=== PATIENT | female | born 1950 | race Caucasian/White ===

== ENCOUNTER 2019-04-07 12:54 | Inpatient (IN) | payer BC ==
[2019-04-07 13:26] VITALS: BMI 27.1
--- NOTE | 2019-04-07 15:22 | HP ---
CIWA Score Nausea/Vomitin-No Nausea/No Vomiting Muscle Tremors: None Anxiety: 0-No Anxiety, at Ease Agitation: 0-Normal Activity Paroxysmal Sweats: No Perspiration Orientation: 0-Oriented Tacttile Disturbances: 0-None Auditory Disturbances: 0-None Visual Disturbances: 0-None Headache: 0-None Present CIWA-Ar Total Score: 0 - Admission Criteria OASAS Guidelines: Admission for Medically Managed Detox: Requires at least one of the followin. CIWA greater than 12 2. Seizures within the past 24 hours 3. Delirium tremens within the past 24 hours 4. Hallucinations within the past 24 hours 5. Acute intervention needed for co occurring medical disorder 6. Acute intervention needed for co occurring psychiatric disorder 7. Severe withdrawal that cannot be handled at a lower level of care (continued vomiting, continued diarrhea, abnormal vital signs) requiring intravenous medication and/or fluids 8. Admission ROS [facility] Chief Complaint: rehab for alcohol Allergies/Adverse Reactions: Allergies Allergy/AdvReac Type Severity Reaction Status Date / Time No Known Allergies Allergy Verified 04/07/19 13:13 History of Present Illness: 68 year old female with a history of osteoporosis, depression (on effexor) and seizure (3 times, 2017, 10/2018, 1 month ago) and alcohol dependence here for rehab for alcohol use. Has a plan to go back to [facility] for outpatient therapy once she finishes. Alcohol Use: started summer 2017 in response to depression; drinks on and off, sometimes every day, sometimes every other day, quarter to a half of a bottle of rum whenever she did; last drink was Wednesday, no current withdrawal symptoms Cigarettes: never No other drug use. Allergies: none Surgery: 2000 had surgery for GERD Social: lives alone in apartment Family: Has relatives out of state, support system through work Work: police department secretary @ [employer] - Ebola screening Have you traveled outside of the country in the last 21 days: No Have you had contact with anyone from an Ebola affected area: No Do you have a fever: No - Review of Systems Constitutional: No Symptoms Reported EENT: reports: No Symptoms Reported Respiratory: reports: No Symptoms reported Cardiac: reports: No Symptoms Reported GI: reports: No Symptoms Reported : reports: No Symptoms Reported Musculoskeletal: reports: No Symptoms Reported Integumentary: reports: No Symptoms Reported Neuro: reports: No Symptoms reported Endocrine: reports: No Symptoms Reported Hematology: reports: Anemia Psychiatric: reports: Judgement Intact, Mood/Affect Appropiate, Orientated x3 Patient History - Smoking Cessation Smoking history: Never smoked - Substances abused Alcohol Substance route: Oral Frequency: Daily Amount used: 1 pint of rum Age of first use: 67 Date of last use: 04/03/19 Admission Physical Exam [facility] - Vital Signs Vital Signs: Vital Signs - 24 hr 04/07/19 13:11 Temperature 98.2 F Pulse Rate 73 Respiratory 16 Rate Blood Pressure 139/83 - Physical General Appearance: Yes: No Apparent Distress, Nourished, Appropriately Dressed HEENTM: Yes: EOMI, Hearing grossly Normal, Normal ENT Inspection, Normocephalic Respiratory: Yes: Chest Non-Tender, Lungs Clear, Normal Breath Sounds Breast: Yes: Breast Exam Deferred Cardiology: Yes: Regular Rhythm, Regular Rate Abdominal: Yes: Normal Bowel Sounds, Non Tender, Flat, Soft Musculoskeletal: Yes: Within Normal Limits Extremities: Yes: Normal Capillary Refill, Normal Inspection, Normal Range of Motion, Non-Tender Neurological: Yes: strap buckler II-XII NML intact, Fully Oriented, Alert, Motor Strength 5/5, Normal Mood/Affect Integumentary: Yes: Normal Color, Dry, Warm - Diagnostic (1) Alcohol dependence Current Visit: Yes Status: Acute Cleared for Admission [facility] - Detox or Rehab [facility] Level of Care: Medically Managed Breathalyzer - Breathalyzer Breathalyzer: 0 Urine Drug Screen - Test Device Lot number: [id number] Expiration date: 12/04/20 - Control Is test valid?: Yes - Results Drug screen NEGATIVE: Yes Inpatient Rehab Admission - Rehab Decision to Admit Inpatient rehab admission?: Yes - Initial Determination Are CD services needed?: Yes Free of communicable disease: Yes Not in need of hospitalization: Yes - Rehab Admission Criteria Previous failed treatment: Yes Poor recovery environment: No Comorbidities: No Lacks judgement: No Patient is meeting Inpatient Rehab admission criteria:: Yes
[2019-04-07] MEDS ORDERED: ACETAMINOPHEN 325 MG TABLET (FP) PO PRN (15:36)
[2019-04-07] MEDS ORDERED: MAGNESIUM CITRATE 300 ML BOTTLE PO PRN (15:36)
[2019-04-07] MEDS ORDERED: LOPERAMIDE HCL 2 MG CAPSULE PO PRN (15:36)
[2019-04-07] MEDS ORDERED: IBUPROFEN 400 MG TABLET (FP) PO PRN (15:36)
[2019-04-07] MEDS ORDERED: MENTHOL/PHENOL 1 EACH UD MM PRN (15:36)
[2019-04-07] MEDS ORDERED: MAG HYDROX/AL HYDROX/SIMETH 30 ML UNIT-DOSE CUP PO PRN (15:36)
[2019-04-07] MEDS ORDERED: MAGNESIUM HYDROX 2400MG/30ML ORAL SUSPENSION 30 ML CUP PO PRN (15:36)
[2019-04-07] MEDS ORDERED: guaiFENesin 200 MG/10 ML 10 ML UNIT-DOSE CUPS PO PRN (15:36)
[2019-04-07] MEDS ORDERED: P-EPHED 60MG/TRIPROLIDI 2.5MG TABLET PO PRN (15:36)
--- NOTE | 2019-04-07 16:09 | PN ---
Teaching Attending Note Name of Resident: Thiago Bill ATTENDING PHYSICIAN STATEMENT I saw and evaluated the patient. I reviewed the resident's note and discussed the case with the resident. I agree with the resident's findings and plan as documented. SUBJECTIVE:this 68 years old female with history of alcohol disorder,denied seizure,syncope,last last week, history of depression OBJECTIVE: Vital Signs Temperature 98.2 F 04/07/19 13:11 Pulse Rate 73 04/07/19 13:11 Respiratory Rate 16 04/07/19 13:11 Blood Pressure 139/83 04/07/19 13:11 O2 Sat by Pulse Oximetry (%) no withdrawal symptom ASSESSMENT AND PLAN:this 68 years old female with alcohol disorder,no withdrawal symptom,syncope last 1 week ago,medically clear to be admitted for rehab
[2019-04-07] MEDS ORDERED: TUBERCULIN PPD 5 TU/0.1ML VIAL ID ONE (17:36)
[2019-04-07] MEDS ORDERED: VENLAFAXINE HCL 75 MG TABLET PO SCH (22:00)
[2019-04-07] MEDS: THIAMINE HCL 100 MG TABLET (FP) PO SCH (22:17)
[2019-04-07] MEDS: risperiDONE 0.5 MG TABLET (FP) PO SCH (22:17)
[2019-04-07] MEDS: MELATONIN 5 MG TABLETS PO PRN (22:18)
[2019-04-08] MEDS: PRENATAL VITAMINS W/ FOLIC ACID TABLET (FP) PO SCH (09:36)
[2019-04-08 09:55] LABS: HEMATOCRIT 39.1 % (32.4-45.2); HEMOGLOBIN 12.8 GM/dL (10.7-15.3); MCH 30.7 pg (25.7-33.7); MCHC 32.8 g/dl (32.0-36.0); MEAN CELL VOLUME 93.6 fl (80-96); MEAN PLT VOLUME 8.5 fl (7.5-11.1); PLATELET COUNT 272 K/MM3 (134-434); RBC 4.18 M/mm3 (3.60-5.2); RDW 14.5 % (11.6-15.6); WHITE BLOOD COUNT 5.8 K/mm3 (4.0-10.0)
[2019-04-08] MEDS ORDERED: VENLAFAXINE HCL 75 MG TABLET PO SCH (10:00)
[2019-04-08 10:10] LABS: ALBUMIN 2.9 g/dl (3.4-5.0); BILIRUBIN,TOTAL 0.9 mg/dL (0.2-1); BLOOD UREA NITROGEN 13.4 mg/dL (7-18); CALCIUM 8.5 mg/dL (8.5-10.1); CREATININE 0.8 mg/dL (0.55-1.3); POTASSIUM 3.9 mmol/L (3.5-5.1); TOT PROT 5.7 g/dl (6.4-8.2)
[2019-04-08] MEDS ORDERED: PT OWN MED DRAWER 7, Y5N ONE ×2 (10:19→19:30)
[2019-04-08 11:38] VITALS: TEMP 98.2
[2019-04-08] MEDS ORDERED: FLU VACCINE QUAD 60 MCG/0.5 ML (MDV 19-20) IM ONE (12:00)
--- NOTE | 2019-04-08 15:09 | CONSULT ---
[facility] Psychiatric Consult - Data Date of interview: 04/08/19 Admission source: [facility] Identifying data: First visit to [facility] and direct admission to [address] for this 68 y/o male self-referred for rehabilitative care addressing alcohol use disorder co-morbid with MDD and delusional disorder, erotomanic type (suspected). Patient is single (never ), no dependents, domiciled, currently employed and also supported on Social Security benefits. Substance Abuse History: Discussed with the patient in this session. Details in current [facility] report as follows : Smoking history: Never smoked. Substances abused. Alcohol. Substance route: Oral. Frequency: Daily. Amount used: 1 pint of rum. Age of first use: 67. Date of last use: 04/03/19 Medical History: Medical profile is remarkable for osteoporosis, antecedent of withdrawal-related seizures and history of surgery (GERD). Psychiatric History: Patient endorses a history of two psychiatric hospitalizations ([place] [id number] in 2007 + [facility] in 2018). Diagnosed with MDD. Ms Loving sees a psychiatrist (Dr Santoyo) and a therapist at the [facility] in [facility]. She is maintained on a regimen of venlafaxine ER 150 mg/day + 75 mg/hs in combination with risperdal 0.5 mg/hs. Patient reports optimal adherence to her medications + good therapeutic alliance with her mental health providers. Denies history of suicide attempts. Physical/Sexual Abuse/Trauma History: No reported history of abuse. Stressors : loneliness, financial difficulties and erotic fantasies about a male [employer] actor (name not disclosed). Additional Comment: Negative toxicology. Mental Status Exam - Mental Status Exam Alert and Oriented to: Time, Place, Person Cognitive Function: Good Patient Appearance: Well Groomed (short stature, moderately overweight; appears stated age) Mood: Hopeful Affect: Appropriate (at time of interview), Normal Range Patient Behavior: Appropriate (friendly and well-mannered), Cooperative Speech Pattern: Clear, Appropriate Voice Loudness: Normal Thought Process: Intact, Goal Oriented Thought Disorder: Not Present (understands that her fantasies about the male celebrity are " unattainable " and unrealistic) Hallucinations: Denies Suicidal Ideation: Denies Homicidal Ideation: Denies Insight/Judgement: Good Sleep: Well Appetite: Good Gait/Station: Normal Psychiatric Findings - Problem List ([place] 1, 2,3) (1) Alcohol dependence Current Visit: Yes Status: Chronic (2) Depressive disorder Current Visit: Yes Status: Chronic - Initial Treatment Plan Initial Treatment Plan: Psychoeducation. Sleep hygiene. Support. AA meetings. MAT services offered. Groups. Motivational counseling. Medications revisited : effexor ER 150 mg po daily (patient declines to take the evening dose of 75 mg at the advice of her psychiatrist, Dr Santoyo : self-report) + risperdal 0.5 mg po hs. Side effecst/benefits of both drugs are discussed with the patient. Ms Loving is informed of risk of hypertension and abnormal involuntary movements ( dystonias, dyskinesias, akathisia), neuroleptic malignant syndrome, endocrine issues (galactorrhea, gynecomastia) and cardiovascular adverse events. She vervalizes agreement with this plan of care. Verbal consent obtained from the patient. Observation.
[2019-04-08] MEDS: MELATONIN 5 MG TABLETS PO PRN (21:24)
[2019-04-08] MEDS: THIAMINE HCL 100 MG TABLET (FP) PO SCH (21:24)
[2019-04-08] MEDS: risperiDONE 0.5 MG TABLET (FP) PO SCH (21:24)
[2019-04-09 06:58] VITALS: BP 134/88; PULSE 92
[2019-04-09] MEDS ORDERED: PT OWN MED DRAWER 7, Y5N ONE (08:30)
[2019-04-09] MEDS: PRENATAL VITAMINS W/ FOLIC ACID TABLET (FP) PO SCH (09:16)
[2019-04-09 09:26] LABS: HYALINE CASTS 2 /lpf (0-8); PH,URINE 6.5 (5.0-8.0); URINE APPEARANCE CLOUDY; URINE BACTERIA 270.5 /hpf (NEGATIVE); URINE BILIRUBIN NEGATIVE (NEGATIVE); URINE COLOR YELLOW; URINE GLUCOSE (UA) NEGATIVE (NEGATIVE); URINE KETONE NEGATIVE (NEGATIVE); URINE LEUK ESTERASE 2+ (NEGATIVE); URINE NITRITE NEGATIVE (NEGATIVE); URINE PROTEIN NEGATIVE (NEGATIVE); URINE RBC 6 /hpf (0-4); URINE UROBILINOGEN 0.2 mg/dL (0.2-1.0); URINE WBC 27 /hpf (0-5)
[2019-04-09] MEDS ORDERED: VENLAFAXINE HCL 75 MG E.R. CAPSULES (FP) PO SCH (10:00)
[2019-04-09] MEDS ORDERED: VENLAFAXINE HCL 150 MG E.R. CAPSULE PO SCH (10:00)
--- NOTE | 2019-04-09 11:03 | DS ---
[facility] Detox Discharge Summary Admission Date: 04/07/19 Discharge Date: 04/09/19 - History Present History: Alcohol Dependence Additional Comments: desires ama departure previously in outpt and 1 week abstinence max referred by primary therapist feels this is not a therpeutic environment-"cultural mismatch this is like halfway " related risks o relapse on departure elects ama departure and understanding of risks - Physical Exam Results Vital Signs: Vital Signs Temperature 98.2 F 04/09/19 06:57 Pulse Rate 92 H 04/09/19 06:57 Respiratory Rate 16 04/09/19 06:57 Blood Pressure 134/88 04/09/19 06:57 O2 Sat by Pulse Oximetry (%) - Medication Discharge Medications: Ambulatory Orders Multivitamins [Tab-A-Vit -] 1 tab PO DAILY 04/07/19 Risperidone [Risperdal -] 0.5 mg PO HS 04/07/19 Venlafaxine HCl [Effexor -] 150 mg PO DAILY 04/07/19 Venlafaxine HCl ER [Effexor Xr -] 75 mg PO DAILY 04/08/19 - AMA Did Patient Leave Against Medical Advice: Yes
== END 2019-04-09 11:15 | disposition left against medical advice (07) | DRG 894 ==
LOC: YASAS 12:54 → Y3E 16:08
PROVIDERS: ADMIT Neuromusculoskeletal Medicine & OMM; ATTEND Neuromusculoskeletal Medicine & OMM
PROC: HZ42ZZZ Group Counseling for Substance Abuse Treatment, Cognitive-Behavioral (ICD-10-PCS; principal; 2019-04-07)
PROC: HZ2ZZZZ Detoxification Services for Substance Abuse Treatment (ICD-10-PCS; 2019-04-07)
DX: F10.20 Alcohol dependence, uncomplicated (principal); F32.9 Major depressive disorder, single episode, unspecified; M81.0 Age-related osteoporosis without current pathological fracture; K21.9 Gastro-esophageal reflux disease without esophagitis; Z86.69 Personal history of other diseases of the nervous system and sense organs
CPT/HCPCS: 36415; 80053; 81003; 85027; 86593; Q2036